=== PATIENT | female | born 1945 | race Caucasian/White ===

== ENCOUNTER 2021-02-14 11:28 | Outpatient (REF) | payer MEDICAID, OTHER, SELFPAY ==
--- NOTE | ~2021-02-14 | MM_ITS ---
EXAMINATION: MM SCREENING DIGITAL BREAST TOMOSYNTHESIS, BILATERAL CLINICAL INFORMATION: Screening. Asymptomatic. Age 75. No known family history breast cancer. Prior mammography performed out of the country in the [place] and no longer available. The lifetime risk of breast cancer based on the Tyrer-Cuzick Model is 2%. COMPARISON: None (current study represents new baseline exam). TECHNIQUE: Digital breast tomosynthesis is performed in both the craniocaudal and mediolateral oblique views along with computer-aided detection (CAD). Synthesized 2D images are generated from the tomosynthesis. FINDINGS: There are scattered areas of fibroglandular density (ACR BI-RADS breast composition Category b). There are no significant masses, abnormal calcifications, or other abnormalities. The axilla and skin contours are unremarkable. MM/MM tomosynthesis screening BI IMPRESSION: No mammographic evidence of malignancy. ASSESSMENT: BI-RADS 1: Negative RECOMMENDATION: Routine annual mammography screening. This patient's information was entered into a reminder system with a target due date for their next mammogram.
== END 2021-02-14 11:29 | disposition home or self-care (01) ==
LOC: HO.MAMMO 11:28
PROVIDERS: Visit Provider General Practice
DX: Z12.31 Encounter for screening mammogram for malignant neoplasm of breast (principal)
CPT/HCPCS: 77063; 77067

== ENCOUNTER 2025-07-08 12:39 | Emergency (ER) | payer MEDICAID, OTHER, SELFPAY ==
--- NOTE | ~2025-07-08 | XR_ITS ---
EXAMINATION: XR CHEST CLINICAL INFORMATION: chest pain COMPARISON: None available. TECHNIQUE: 2 views of the chest were obtained. FINDINGS: Cardiac silhouette is enlarged. The aorta is tortuous. The lungs are clear. There is no pleural effusion. XR/XR chest 2V IMPRESSION: Cardiomegaly and tortuous aorta. Electronically signed by: Marv Zimmerman MD 07/08/2025 01:34 PM EDT
--- OUTSIDE RECORDS SUMMARY | 2025-07-08 11:00 | XMS_ITS | Encounter Summary ---
Author Organization [facility] Address [address] [place] [address] Care Team Providers Care Plant Assigner Name Role Phone Delgado Felix PA-C Primary Care Provider [phone] Reason for Visit * Reason Comments Hypertension Encounter Details Date Type Department Care Team (Late st Contact Info) Description 07/08/2025 11:00 AM EDT Office Visit [facility] [address] [place] [phone] Hayden Lambert, PharmD [address] [place], [place] [id number] Social History Tobacco Use Types Packs/Day Years Used Date Smoking Tobacco: Never Smokeless Tobacco: Never Alcohol Use Standard Drinks/Week Comments Yes 0 (1 standard drink = 0.6 oz pur e alcohol) occ Social Connections Answer Date Recorded How often do you feel lonely or isolated from th ose around you? 1 10/11/2024 Financial Resource Strain Answer Date R ecorded Hard to pay for: Food 1 10/11/2024 Stress Answer Date Recorded Do you feel these kinds of stress these days? 1 10/11/2024 Physical Activity Answer Date Recorded Physical Activity 0 08/24/2019 Food Insecurity Answer Date Recorded Hard to pay for: Food 1 10/11/2024 Transportation Needs Answer Date Record ed Hard to pay for: Transportation 1 10/11/2024 Housing Stability Answer Date Recorded Hard to pay for: Rent/Mortgage payment 1 10/11/2024 Safety and Environment Answer Date Estevan rded Safety 0 05/14/2023 Utilities Answer Date Recorded Hard to pay for: Utilities 1 10/11 Employment Answer Date Recorded Stress 0 05/14/2023 Comments No Sex and Gender Information Value Date Recorded Sex Assigned at Female 08/24/2019 10:52 AM PST Legal Sex Female 7:15 AM PDT Gender Identity Female 08/24/2019 10:52 AM PST Sexual Orientation Straight 08/24/2019 3: 03 PM PST documented as of this encounter Last Filed Vital Signs Vital Sign Reading Time Taken Comments Blood Pressure 212/98 07/08/2025 11:06 AM EDT Pulse 59 07/08/2025 11:06 AM EDT Temperature - - Respiratory Rate 20 07/08/2025 11:06 AM EDT Oxygen Saturation 99% 07/08/2025 11:06 AM EDT Inhaled Oxygen Concentration - - Weight 65.4 kg (144 lb 3.2 oz) 07/08/2025 11:06 AM EDT Height - - Body Mass Index 27.25 06/29/2025 2:28 PM EDT documented in this encounter Progress Notes * Hayden Martinez PharmD - 07/08/2025 11:03 AM EDT Alis Bush is a 79 year old, Occitan-speaking female who presents today for a [facility] with Hayden Molina PharmD. Referred by Delgado Felix PA-C. No motor vehicle parts interpreter needed for today's visit as provider speaks patient's familiar language. HPI: Patient reports: Endorses adherence to current regimen. Denies missed doses. Denies headaches, chest pain, SOB, blurry vision. BP noted to be extremely elevated at 212/98 mmHg. Denies recent SMBP at home. New concerns: No concerns HTN Specialists: Alcohol use, Dyslipidemia, Family History, and Pre-diabetes Hypertension ROS: taking medications as instructed, no medication side effects noted, no TIAs, no chest pain on exertion, no dyspnea on exertion, no swelling of ankles. Relevant co-morbidities: Alcohol use, Dyslipidemia, Family History, and Pre-diabetes Pharmacotherapy (medications reconciled during visit): Current anti-hypertensive pharmacological regimen: amlodipine-olmesartan 10-40 mg daily and propranolol 60 mg BID Additional OTC medications or supplements: Vitamin C, B-Complex, Calcium supplement Patient reported medication NON-adherence: no misses Patient reports the following medication side effects: none Did you take your medication today? yes Home BP monitoring: Patient denies recent SMBP at home Lifestyle: Adherence to low salt/DASH diet: adherent most of the time Adds salt to your food? no Eats a lot of canned/pre-packaged food products? no Exercise: minimal exercise: walking Caffeine: denies coffee, sometimes drinks tea, denies soda, denies energy drinks Water Intake: 10 glasses of water daily Tobacco Use: Never Smoker Alcohol Use: Socially, only during holidays/gatherings OBJECTIVE BP (!) 212/98 at 07/08/2025 11:06 AM BP (!) 148/60 at 06/29/2025 2:28 PM BP (!) 160/74 at 10/11/2024 10:14 AM Wt Readings from Last 3 Encounters: 07/08/25 144 lb 3.2 oz (65.4 kg) 06/29/25 146 lb (66.2 kg) 10/11/24 145 lb (65.8 kg) Lab Results Component Value Date NA 139 10/11/2024 K 4.7 10/11/2024 BUN 13 10/11/2024 BUNCREAT SEE NOTE: 10/11/2024 CREATININE 0.80 10/11/2024 Lab Results Component Value Date TRIGLYC 103 10/11/2024 CHOL 277 (H) 10/11/2024 HDL 78 10/11/2024 LDL 177 (H) 10/11/2024 CHOLHDL 3.6 10/11/2024 NONHDL 199 (H) 10/11/2024 The ASCVD Risk score (Ronen NOBLE, et al., 2019) failed to calculate for the following reasons: The valid systolic blood pressure range is 90 to 200 mmHg Estimated Creatinine Clearance: 53.4 mL/min (by C-G formula based on SCr of 0.8 mg/dL). Allergies reviewed: No Known Allergies ASSESSMENT BP target: Per ACC/AHA guidelines, for older adults (=65 years of age) with hypertension and a highburden of comorbidity and limited life expectancy, clinical judgment, patient preference, and a team-based approach to assess risk/benefit is reasonable for decisions regarding intensity of BP lowering and choice of antihypertensive drugs. Hypertension - poorly controlled Labs reviewed, up to date and abnormal values (elevated lipid panel) Per ACC/AHA 2017 Hypertension guidelines: Weight loss is recommended to reduce BP in adults with elevated BP or hypertension who are overweight or obese. Expect about 1 mm Hg for every 1-kg reduction in body weight., A heart-healthy diet, such as the DASH (Dietary Approaches to Stop Hypertension) diet, that facilitates achieving a desirable weight is recommended for adults with elevated BP or hypertension. Consume a diet rich in fruits, vegetables, whole grains, and low-fat dairy products, with reduced content of saturated and total fat., Sodium reduction is recommended for adults with elevated BP or hypertension. Optimal goal is <1500 mg/d, but aim for at least a 1000-mg/d reduction in most adults., and Increased physical activity with a structured exercise program is recommended for adults with elevated BP or hypertension. 90-150 min/wk. PLAN I10 Essential hypertension (primary encounter diagnosis) Plan : ECG ROUTINE ECG W/LEAST 12 LDS W/I&R Hypertension - poorly controlled. EKG performed. T wave inversions at 2,3 an aVF per Tonny Haskins PA-C. Uncontrolled BP with concerning EKG, advised to go to ER. Patient daughter agreeable to take patient to [facility]. Expect called in by nurse. EDUCATION PROVIDED: Proper conditions for taking blood pressure include sitting in a chair with feet flat on the groundfor a few minutes prior to blood pressure measurement, arm resting on flat surface at heart level, elimination of background noises, no talking, empty bladder, proper environmental temperature. Factors to also consider that may affect BP include, smoking, caffeine, alcohol use, pain, and exercise. Seeking emergency treatment if persistent chest pain, blurry vision, and/or palpitations Medication(s): (indication, dosage, administration, storage, side effects, missing dose) Correspondence Coordinator Complications of Uncontrolled Hypertension Lifestyle Modifications (weight reduction, diet, exercise). Meal Planning (low salt diet, measuringtools, serving sizes, nutrition labels). REFERENCES: Sarah PK, Wilma RM, Shant WS, Rodney RODRIGUEZ Jr, Eliazar KJ, Ila Benitez C, Silvana SM, Luly S, Vanessa KA, Jaswinder DW, Pete EJ, Kelby P, Meera B, Pancho SWARTZ Jr, Sukumar CC, Richie RS, Kaye SJ, Kenan RJ, Sergio GEORGE Sr, Vincent RamiresD, Fredy PANIAGUA Jr. 2017 ACC/AHA/AAPA/ABC/ACPM/AG S/APhA/CHAPO/ASPC/NMA/PCNA Guideline for the Prevention, Detection, Evaluation, and Management of High Blood Pressure in Adults: Executive Summary: A Report of the [place] College of Cardiology/[place] Heart Association Task Force on Clinical Practice Guidelines. Hypertension. 2018 Mar;71(6):8346-3666. doi: 10.1161/HYP.3212953083696726. Epub 2016Aug 18. Erratum in: Hypertension. 2018 Mar;71(6):s196-c698. Erratum in: Hypertension. 2017;72(3):e33. PMID: [id number]. Hayden Molina PharmD, [facility] documented in this encounter Plan of Treatment Not on file documented as of this encounter Visit Diagnoses Diagnosis Essential hypertension- Primary documented in this encounter Additional Health Concerns Assessment Noted Time PHQ-9 Depression Total Score: 0 11/06/19 24 1:48 PM PST A Depression follow-up plan has been documented for the patient 06/29/2025 4:17 PM PDT documented as of this encounter Care Teams Plant Assigner Relationship Specialty Start Date End Date Delgado Felix PA-C [address] [place] [address] PCP - General 03/15/22 documented as of this encounter
--- NOTE | 2025-07-08 12:41 | ECG_ITS ---
Test Reason : chest pain Blood Pressure : */* mmHG Vent. Rate : 59 BPM Atrial Rate : 59 BPM P-R Int : 146 ms QRS Dur : 146 ms QT Int : 440 ms P-R-T Axes : -11 -52 -25 degrees QTcB Int : 435 ms Sinus bradycardia with Premature atrial complexes Right bundle branch block Left anterior fascicular block Bifascicular block Minimal voltage criteria for LVH, may be normal variant ( R in aVL ) Septal infarct , age undetermined Abnormal ECG No previous ECGs available Referred By: Generic ED Physician Electronically Signed By: CHELY BARNES
[2025-07-08 13:10] VITALS: BP 216/93; PULSE 54; RESP 16; TEMP 36.1; O2SAT 97; BMI 27.4
--- NOTE | 2025-07-08 13:12 | ED_ITS ---
HPI - General Adult General Chief complaint: Chest Pain Stated complaint: Chest Pain Time Seen by Provider: 07/08/25 15:32 History of Present Illness ED Provider: Hossein Glass MD HPI narrative: 79-year-old female with a history of hypertension hard of hearing sent from cardiology office after a routine visit she was complaining of intermittent mild right-sided chest discomfort and has had a dry cough without fever for several days. No sick contacts no hemoptysis or leg swelling no prior DVT PE no known coronary disease. She denies any pain radiating to the back neck or jaw or extremities. Currently comfortable and no pain at all. Reported that potentially there was a T-wave inversion or other potentially new abnormality of the EKG not described in detail to me I do not have access to previous EKGs. Related Data Allergies Allergy/AdvReac Type Severity Reaction Status Date / Time No Known Allergies Allergy Verified 07/08/25 13:13 [facility] Social History Social History Advance Directives: No Advance Directives Information Provided: No Physical Exam ED Exam Exam: EXAM: Gen: Alert, awake, well appearing, well hydrated. Head: Atraumatic Eyes: Anicteric, Normal conjunctiva. ENT: Moist mucosa, no pallor. ? Neck: Supple. Skin: ?No observable rash or bruising on exposed or examined skin Respiratory: Breathing comfortably, No distress.Clear to auscultation bilaterally, symmetric chest expansion, No wheeze, rales, ronchi. Cardiovascular: Regular rate and rhythm. No murmurs or rub. Well perfused periphery, warm extremities. No edema. ? Abdominal: No focal tenderness. Soft, no objective distension. No palpable masses or obvious organomegaly. ?No guarding, no rebound tenderness or other peritoneal findings. : No flank tenderness. Neuro: Alert. Gross movement of all extremities intact. ? Psych: Calm. Cooperative. MSK: No grossly visible deformity. Vital signs: See flowsheet Vital Signs: Vital Signs - 24 hr 07/08/25 13:10 Temperature 96.9 F Pulse Rate 54 Respiratory Rate 16 Blood Pressure 216/93 H Pulse Oximetry 97 Oxygen Delivery Method Room Air BMI result Body Mass Index 27.4 Course Course Course Narrative: This is a rapid medical exam performed by Elan Shea NP: Additional HPI, ROS, PE not included below will be deferred to primary provider. Patient is a 79-year-old [place] Zealander speaking female presenting with complaint of chest pain and headache since this am. [facility]. Saw operations manager assistant this morning, was referred here for new T wave inversion. Plan: EKG, labs, viral serology, CXR Medical Decision Making Medical Decision Making MDM Narrative: Medical Decision Making: Chest pain right-sided intermittent associated with cough. The patient is got a tortuous aorta and cardiomegaly likely chronic hypertension. Right bundle- branch block, left anterior fascicular block unknown age. T-wave inversion lead 3 and AVF. Given the duration and intermittent and atypical character of the pain a negative troponin today excludes NM or myocardial injury. The patient is comfortable with no hypoxia. Without any treatment systolic blood pressure came down from 218 to 160s. Patient does not have exertional pain she is under the care of a operations manager assistant in can likely follow up for stress test or other provocative or invasive testing if needed. Preliminary Favored Differential Diagnosis: ACS, pneumonia, bronchitis, musculoskeletal pain among additional considered etiologies Testing Interpreted Independently: ?ECG from patient's cardiology office today interpreted by myself: Sinus rhythm incomplete right bundle-branch block present. T-wave inversions though concordant with QRS predominant voltage in the inferior leads. ECG today in our ED: Sinus rhythm rate 59 QTC 435 no acute ischemic changes similar consistent in morphology to the office EKG from earlier today. Radiology or Lab testing Results Reviewed: ?See below for details Consults: ?See below for details Independent Historians/External Chart Reviews: ?See below for details Social Determinants of Health Impacting MDM/Planning: ?See below for details Lab Data 07/08/25 13:43 07/08/25 13:43 Labs: Lab Results 07/08/25 Range/Units 13:43 WBC 7.4 (4.8-10.8) X10*3/uL RBC 4.59 (4.20-5.50) X10*6/uL Hgb 13.9 (12.0-16.0) g/dl Hct 41.9 (37.0-47.0) % MCV 91.3 (80.0-98.0) fL MCH 30.3 (27.0-33.0) pg MCHC 33.2 (31.0-35.0) g/dl RDW 12.7 (11.0-16.0) % Plt Count 266 (160-400) X10*3/uL MPV 10.0 (9.4-12.3) fL Immature Gran % (Auto) 0.3 (0.0-0.4) % Neut % (Auto) 70.9 (45-73) % Lymph % (Auto) 20.5 (20-40) % [place] % (Auto) 5.8 (2-11) % Eos % (Auto) 1.6 (0-4) % Baso % (Auto) 0.9 (0-2) % Lymph # (Auto) 1.5 (1.2-4.9) X10*3/uL [place] # (Auto) 0.4 (0.1-1.2) X10*3/uL Eos # (Auto) 0.1 (0.0-0.4) X10*3/uL Baso # (Auto) 0.1 (0.0-0.2) X10*3/uL Abs Immat Gran (auto) 0.02 (0.00-0.03) X10*3/uL Absolute Neuts (auto) 5.3 (2.0-8.3) x10*3/uL Absolute Nucleated RBC 0.000 (0.0-0.012) X10*3/uL Nucleated RBC % (auto) 0.0 (0.0-0.2) /100WBC PT 12.1 (10.9-12.4) SEC INR 1.1 (0.9-1.1) Sodium 140 (135-145) mmol/L Potassium 4.4 (3.3-5.1) mmol/L Chloride 104 (96-108) mmol/L Carbon Dioxide 28 (22-29) mmol/L Anion Gap 12 (12-20) BUN 11 (9-16) mg/dL Creatinine 0.83 (0.5-1.4) mg/dL Estim Creat Clear Calc 49.2 Estimated GFR > 60 Random Glucose 147 H (60-115) mg/dL Calcium 10.6 H (8.4-10.2) mg/dL Magnesium 2.1 (1.6-2.6) mg/dL Total Bilirubin 1.0 (0.0-1.0) mg/dL AST 33 H (5-31) U/L ALT 23 (0-31) U/L Alkaline Phosphatase 87 (39-117) U/L Troponin I High Sens < 2.7 (<3.5-17.0) ng/L NT-Pro-B Natriuret Pep 217.5 (<300) pg/mL Total Protein 8.8 H (6.5-8.0) g/dL Albumin 4.7 (3.5-5.0) g/dL COVID-19 (KP) Negative (Negative) COVID-19 Clin Com See Note Influenza Type A ([place]) Negative (Negative) Influenza Type B ([place]) Negative (Negative) Influenza A & B Note See Note Discharge Plan Discharge Clinical Impression: Atypical chest pain Patient Disposition: Home, Self-Care Instructions: Chest Pain (ED) Additional Instructions: Call your operations manager assistant Friday morning to discuss follow up Additionally: Chest Pain Discharge Instructions Discharge Instructions for Chest Pain and Hypertension - Diagnosis and Risk: You were evaluated for chest pain. Your tests, including heart enzyme (troponin) levels and ECG, did not show signs of a heart attack or major heart problem. However, your blood pressure remains high and you have risk factors that require close follow-up.[1] https://www.ncbi.nlm.nih.gov/pmc/articles/OSH62520995/ [2] https://doi.org/10.1016/j.jacc.202.07.053 [3] https://doi.org/10.1016/j.jacc.2013.09.017 - Warning Signs: Return to the emergency department immediately if you experience: - Chest pain that is severe, prolonged, or different from your usual symptoms - Shortness of breath, fainting, sudden weakness, or confusion - Palpitations or rapid heartbeat - New or worsening symptoms such as leg swelling or sudden fatigue[2] https://doi.org/10.1016/j.jacc.202.07.053 - Medications: Take all prescribed medications as directed, including those for blood pressure. If you were given nitroglycerin, use it as instructed for chest discomfort. Do not take extra doses without medical advice.[3] https://doi.org/10.1016/j.jacc.2013.09.017 - Activity: Resume normal activities as tolerated, but avoid strenuous exercise until cleared by your operations manager assistant. If you experience chest pain during activity, stop and rest. If pain persists, seek medical attention.[3] https://doi.org/10.1016/j.jacc.2013.09.017 - Follow-Up: It is important to follow up with your operations manager assistant within 7 days, or as scheduled, to review your symptoms, blood pressure control, and need for further testing. Bring a list of your medications and any new symptoms to your appointment.[1] https://www.ncbi.nlm.nih.gov/pmc/articles/GZJ90680312/ - Lifestyle: - Monitor your blood pressure at home if possible. - Limit salt intake and follow a heart-healthy diet. References * 2021 ACC Expert Consensus Decision Pathway on the Evaluation and Disposition of Acute Chest Pain In?the?Emergency Department: A Report of the [place] [employer] Solution Set Oversight Committee https://www.ncbi.nlm.nih.gov/pmc/articles/OUP63609600/ . Sarabjit MC, de Ignacia JA, Jared COON, et al. Journal of the [place] [employer]. 2021;80(20):4435-7148. doi:10.1016/j.jacc.2021.08.750. * 2020 AHA/ACC/ASE/CHEST/SAEM/SCCT/SCMR Guideline for the Evaluation and Diagnosis of Chest Pain: A Report of the [place] College [employer]iology/[place] Heart Association Joint Committee on Clinical Practice Guidelines https://doi.org/10.1016/j.jacc.2020.07.053 . Manpreet M, Jason PD, Sherrell D, et al. Journal of the [place] [employer]. 2020;78(22):f170-u926. doi:10.1016/j.jacc.2020.07.053. * 2014 AHA/ACC Guideline for the Management of Patients With Hga-Si-Htamsoenq Acute Coronary Syndromes: A Report of the [place] [employer]/[place] Heart Association Task Force on Practice Guidelines https://doi.org/10.1016/j.jacc.2014.09.017 . Pedro EA, Carmen NK, Humera RG, et al. Journal of the [place] [employer]. 2014;64(24):e139- e228. doi:10.1016/j.jacc.2014..017. Print Language: [place] Zealander
[2025-07-08 13:49] LABS: MANUAL DIFF FLAG NO
[2025-07-08 13:56] LABS: INTERNATIONAL NORM RATIO 1.1 (0.9-1.1); Prothrombin Time 12.1 SEC (10.9-12.4)
[2025-07-08 13:58] LABS: Hematocrit 41.9 % (37.0-47.0); Hemoglobin 13.9 g/dl (12.0-16.0); Imm Gran Abs Auto 0.02 X10*3/uL (0.00-0.03); Imm Gran Pct Auto 0.3 % (0.0-0.4); Lymphocytes Absolute Auto 1.5 X10*3/uL (1.2-4.9); Mean Corpuscular HGB Conc 33.2 g/dl (31.0-35.0); Mean Corpuscular Hemoglobin 30.3 pg (27.0-33.0); Mean Corpuscular Volume 91.3 fL (80.0-98.0); NRBC Abs Auto 0.000 X10*3/uL (0.0-0.012); NRBC Pct Auto 0.0 /100WBC (0.0-0.2); Platelet Count 266 X10*3/uL (160-400); Red Blood Count 4.59 X10*6/uL (4.20-5.50); White Blood Count 7.4 X10*3/uL (4.8-10.8)
--- OUTSIDE RECORDS SUMMARY | 2025-07-08 13:58 | XMS_ITS | Clinical Summary ---
Author Organization [facility] Address [address] [place] [address] Care Team Providers Care Production Packager Name Role Phone Delgado Felix PA-C Primary Care Provider [phone] Source Comments PLEASE NOTE, if this patient is a minor, it may be UNLAWFUL to discuss sensitive information that is contained in these records (such as FAMILY PLANNING, MENTAL HEALTH or SUBSTANCE ABUSE) with the minor patient's parent or other person without the patient's specific authorization.[facility] Allergies No known active allergies Medications timolol (TIMOPTIC) 0.5 % ophthalmic solutionIndication s:Glaucoma of left eye, unspecified glaucoma type Place 1 Drop into both eyes once daily 30 mL 2 02/12/20 23 Active blood-glucose meter monitoring kitIndications:Typ e 2 diabetes mellitus without complication, without long-term current use of insulin as needed for blood glucose monitoring 1 Each 11/06/19 24 Active latanoprost (XALATAN) 0.005 % ophthalmic solutionIndication s:Glaucoma of left eye, unspecified glaucoma type,Senile cataract of left eye, unspecified age-related cataract type Coloque 1 gota en ambos ojos todas las noches antes de acostarse 10 mL 12/16/19 24 Active acetaminophen (TYLENOL) 325 mg tabletIndications: Myalgias Take 2 Tablets by mouth every 6 (six) hours as needed for pain. 60 Tablet 1 06/29/20 25 Active amlodipine-olmesar casiano (BASILIO) 10-40 mg tab per tabIndications:Ess ential hypertension Take 1 Tablet by mouth once daily. 90 Tablet 1 06/29/20 25 Active atorvastatin (LIPITOR) 20 mg tabletIndications: Mixed hyperlipidemia Take 1 Tablet by mouth once daily. 90 Tablet 1 06/29/20 25 Active ferrous sulfate (FEROSUL) 325 mg (65 mg iron) tabletIndications: Other iron deficiency anemia Take 1 Tablet by mouth once daily with breakfast. 90 Tablet 1 06/29/20 25 Active metFORMIN (GLUCOPHAGE) 500 mg tabletIndications: Type 2 diabetes mellitus without complication, without long-term current use of insulin TAKE TWO TABLETS BY MOUTH 2 TIMES A DAY. 360 Tablet 06/29/20 25 Active propranoloL (INDERAL) 60 mg tabletIndications: Intention tremor,Essential hypertension Take 1 Tablet by mouth 2 (two) times daily. 90 Tablet 1 06/29/20 25 Active propranoloL (INDERAL) 60 mg tabletIndications: Essential hypertension,Inten tion tremor TAKE ONE TABLET BY MOUTH TWICE DAILY 90 Tablet 1 03/21/20 25 025 Discontin ued(Reord er (E-Cancel Not Sent)) metFORMIN (GLUCOPHAGE) 500 mg tabletIndications: Type 2 diabetes mellitus without complication, without long-term current use of insulin TAKE TWO TABLETS BY MOUTH 2 TIMES A DAY. 360 Tablet 05/30/20 25 025 Discontin ued(Reord er (E-Cancel Not Sent)) ferrous sulfate (FEROSUL) 325 mg (65 mg iron) tabletIndications: Other iron deficiency anemia Take 1 Tablet by mouth once daily with breakfast. 90 Tablet 1 05/30/20 25 025 Discontin ued(Reord er (E-Cancel Not Sent)) atorvastatin (LIPITOR) 20 mg tabletIndications: Mixed hyperlipidemia Take 1 Tablet by mouth once daily. 90 Tablet 1 05/30/20 25 025 Discontin ued(Reord er (E-Cancel Not Sent)) amlodipine-olmesar casiano (BASILIO) 10-40 mg tab per tabIndications:Ess ential hypertension Take 1 Tablet by mouth once daily. 90 Tablet 1 05/30/20 25 025 Discontin ued(Reord er (E-Cancel Not Sent)) Active Problems Problem Noted Date Diagnosed Date Iron deficiency anemia 02/02/2020 Mixed hyperlipidemia 02/02/2020 Memory problem 09/14/2019 Essential hypertension 08/24/2019 Type 2 diabetes mellitus wit hout complication, without long-term current use of insulin 08/24/2019 Glaucoma of left eye 08/24/2019 Age-related cataract of left eye 08/24/2019 Encounters Date Type Department Care Team Description 07/08/2025 11:00 [place] [phone] Hayden Lambert, [place] 06/29/2025 2:20 [place] [phone] Delgado Felix PA-C from Last 3 Months Immunizations Immunization Administration Dates Next Due Flu, High Dose, 65y+, Fluzone High Dose 06/18/20 23,08/06/2022 Influenza (FLUZONE), high-do se, trivalent, PF 06/29/2025,08/24/2024 MODERNA COVID-19 VACCINE BIV ALENT, BLUE CAP, 6M+ 03/05/2023 PNEUMOCOCCAL CONJUGATE PCV 2 0 (Prevnar 20) 06/29/2025(Deferred: Out of Stock) PNEUMOCOCCAL POLYSACCHARIDE PPV23 (Pneumovax 23) 02/11/2023 TDAP 03/05/2023 ZOSTER VACCINE, RECOMBINANT (SHINGRIX) 3,08/06/2022 Social History Tobacco Use Types Packs/Day Years Used Date Smoking Tobacco: Never Smokeless Tobacco: Never Tobacco Cessation:Counseling Given: Not Answered Alcohol Use Standard Drinks/Week Comments Yes 0 [...] Orientation Straight 08/24/2019 3: 03 PM PST Last Filed Vital Signs Vital Sign Reading Time Taken Comments Blood Pressure 212/98 07/08/2025 11:06 AM EDT Pulse 59 07/08/2025 11:06 AM EDT Temperature 37 C (98.6 F) 06/29/2025 2:28 PM EDT Respiratory Rate 20 07/08/2025 11:06 AM EDT Oxygen Saturation 99% 07/08/2025 11:06 AM EDT Inhaled Oxygen Concentration - - Weight 65.4 kg (144 lb 3.2 oz) 07/08/2025 11:06 AM EDT Height 154.9 cm (5' 1 ) 06/29/2025 2:28 PM EDT Body Mass Index 27.25 06/29/2025 2:28 PM EDT Plan of Treatment Health Maintenance Due Date Last Done Comments Dental Examination 1947 CT Colonography 1992 Colonoscopy 1992 FIT/gFOBT 1992 Fecal DNA 1992 Flexible Sigmoidoscopy 1992 Bone Density Screening 2012 Imm-Pneumococcal 50+ (2 of 2 - PCV) 02/12/2024 02/11/2023 Retinopathy Screening 07/28/2024 07/28/2023, 023 Hemoglobin A1c 06/18/2025 12/16/2024, 08/0 03/2024, 11/06/2023, Additional history exists [id number] ( season) 2025 03/05/2023, 11/13/2021, 01/16/2021, Additional history exists Postponed from 06/06/2025 (Patient postponement) Lipid Screening 10/11/2025 10/11/2024, 06/06, 06/04/2022, Additional history exists Serum Creatinine 10/11/2025 10/11/2024, , 06/04/2022, Additional history exists Falls Prevention 11/11/2025 11/11/2024, 10/2023, 06/03/2022 Urine Albumin Creatinine Ratio Screening 12/16/2025 12/16/2024, 05/11/2024 Annual Wellness (Adult): Indicated (All Coverage) 06/29/2026 06/29/2025, 05/14/2023, 09/14/2019 Diabetes Foot Exam 06/29/2026 06/29/2025, 0 11/06/2023, 11/06/2023, Additional history exists Imm-RSV (adult) (1 - 1-dose 75+ series) 06/29/2026 Postponed from 2022 (Patient postponement) Tobacco Screening 06/29/2026 06/29/2025 Imm-DTaP/Tdap/Td (2 - Td or Tdap) 03/05/2033 03/05/2023 Imm-Zoster, Recombinant Completed 02/11/2023, 08/06 Hepatitis C Screening Completed 03/05/2023 Alcohol and Drug Screen Completed 11/11/19, 11/06/2023, 02/11/2023, Additional history exists Depression Annual Screen Completed 11/11/2024 Imm-Influenza Completed 06/29/2025, 08/06, 06/18/2023, Additional history exists Colorectal Cancer Screening Discontinued Procedures Procedure Name Priority Date/Time Associated Diagnosis Comments MICROALBUMIN/CREATINI NE RATIO, URINE, RANDOM Routine 12/16/2024 12:09 PM EDT Type 2 diabetes mellitus without complication, without long-term current use of insulin ([facility]) HEMOGLOBIN GLYCOSYLATED A1C Routine 12/16/2024 9:29 AM EDT Type 2 diabetes mellitus without complication, without long-term current use of insulin ([facility]) COMPREHENSIVE METABOLIC PANEL Routine 10/11/2024 10:52 AM EST Essential hypertension LIPID PANEL Routine 10/11/2024 10:52 AM EST Essential hypertension EYE EXAM 07/28/2023 3:00 AM EDT HEPATITIS C AB W/RFLX HCV RNA, QT, RT PCR Routine 03/05/2023 8:57 AM EDT Screening for viral disease from Last 3 Months or Most Recently Relevant to Health Maintenance Results * (ABNORMAL) MICROALBUMIN/CREATININE RATIO, URINE, RANDOM (12/16/2024 12:09 PM EDT) CREATININE, RANDOM URINE 77 20 - 275 mg/dL [employer] MICROALBUMIN 26.2 mg/dL [employer] Comment: Reference Range Not established MICROALBUMIN/CREA TININE RATIO, RANDOM URINE 340(H) <30 mg/g creat [employer] Comment: The ADA defines abnormalities in albumin excretion as follows: Albuminuria Category Result (mg/g creatinine) Normal to Mildly increased <30 Moderately increased 30-299 Severely increased > OR = 300 The ADA recommends that at least two of three specimens collected within a 3-6 month period be abnormal before considering a patient to be within a diagnostic category. Urine Urine specimen / Unknown 12/16/2024 12:09 PM EDT 12/16/2024 12:10 PM EDT Narrative [facility] - 12/17/2024 10:31 PM EDT SPLIT 12/16/2024 FROM [id number] us Delgado Felix PA-C LAB URINE AMBULATORY Final R esult [facility] [address] [place] [address], [employer] [address] [place] [phone] * (ABNORMAL) HEMOGLOBIN GLYCOSYLATED A1C (12/16/2024 9:29 AM EDT) HEMOGLOBIN A1C 6.8(H) <5.7 % of total Hgb [employer] Comment: For someone without known diabetes, a hemoglobin A1c value of 6.5% or greater indicates that they may have diabetes and this should be confirmed with a follow-up test. For someone with known diabetes, a value <7% indicates that their diabetes is well controlled and a value greater than or equal to 7% indicates suboptimal control. A1c targets should be individualized based on duration of diabetes, age, comorbid conditions, and other considerations. Currently, no consensus exists regarding use of hemoglobin A1c for diagnosis of diabetes for children. Blood Blood / Unknown 12/16/2024 9 :29 AM EDT 12/16/2024 9:30 AM EDT Narrative [facility] - 12/17/2024 7:59 AM EDT PATIENT UNABLE TO VOID; ADVISED TO RETURN FOR COLLECTION. us Delgado Felix PA-C LAB - BLOOD DRAW Final Resul t [facility] [address] [address], [employer] [address] [place] [address] * (ABNORMAL) LIPID PANEL (10/11/2024 10:52 AM EST) [facility] CHOLESTEROL, TOTAL 277(H) <200 mg/dL [employer] HDL CHOLESTEROL 78 > OR = 50 mg/dL [employer] TRIGLYCERIDES 103 <150 mg/dL [employer] LDL-CHOLESTEROL 177(H) 99 mg/dL (calc) [employer] Comment: Reference range: <100 Desirable range <100 mg/dL for primary prevention; <70 mg/dL for patients with CHD or diabetic patients with > or = 2 CHD risk factors. LDL-C is now calculated using the Boom-Irwin calculation, which is a validated novel method providing better accuracy than the Friedewald equation in the estimation of LDL-C. Boom SS et al. DENI. 2013;310(19): 6063-2108 (http://education.Return Path.ThoughtBox/faq/LEF083) CHOL/HDLC RATIO 3.6 <5.0 (calc) [employer] NON-HDL CHOLESTEROL 199(H) <130 mg/dL (calc) [employer] Comment: For patients with diabetes plus 1 major ASCVD risk factor, treating to a non-HDL-C goal of <100 mg/dL (LDL-C of <70 mg/dL) is considered a therapeutic option. Blood Blood / Unknown 10/11/2024 1 0:52 AM EST 10/11/2024 10:52 AM EST Narrative [facility] - 10/12/2024 9:07 AM EST FASTING:NO Hayden Martinez PharmD LAB - BLOOD D RAW Final Result [facility] [address] [address], [facility] [address] [place] [address] * COMPREHENSIVE METABOLIC PANEL (10/11/2024 10:52 AM EST) GLUCOSE 111 65 - 139 mg/dL [facility] Comment: Non-fasting reference interval UREA NITROGEN (BUN) 13 7 - 25 mg/dL [facility] CREATININE (blood) 0.80 0.60 - 1.00 mg/dL [facility] EGFR 76 > OR = 60 mL/min/1. 73m2 [facility] BUN/CREATININE RATIO SEE NOTE: [facility] Comment: Not Reported: BUN and Creatinine are within reference range. SODIUM 139 135 - 146 mmol/L [facility] POTASSIUM 4.7 3.5 - 5.3 mmol/L [facility] CHLORIDE 104 98 - 110 mmol/L [facility] CARBON DIOXIDE 28 20 - 32 mmol/L [facility] CALCIUM 9.8 8.6 - 10.4 mg/dL [facility] PROTEIN, TOTAL 7.4 6.1 - 8.1 g/dL [facility] ALBUMIN 4.2 3.6 - 5.1 g/dL [facility] GLOBULIN 3.2 1.9 - 3.7 g/dL (calc) [facility] ALBUMIN/GLOBULI N RATIO 1.3 1.0 - 2.5 (calc) [facility] BILIRUBIN, TOTAL 0.6 0.2 - 1.2 mg/dL [facility] ALKALINE PHOSPHATASE 80 37 - 153 U/L [facility] AST 19 10 - 35 U/L [facility] ALT 20 6 - 29 U/L [facility] Blood Blood / Unknown 10/11/2024 1 0:52 AM EST 10/11/2024 10:52 AM EST Narrative [facility] - 10/12/2024 9:07 AM EST FASTING:NO Hayden Martinez PharmD LAB - BLOOD D RAW Final Result [facility] [address] [address], [facility] [address] [phone] * EYE EXAM (07/28/2023 3:00 AM EDT) 07/28/2023 3:00 AM EDT Delgado Felix PA-C OTHER Edited Resul t - Final * Hep C Ab w/Rflx (03/05/2023 8:57 AM EDT) HEPATITIS C ANTIBODY NON-REACT ROBIN NON-REACT ROBIN [facility] SIGNAL TO CUT-OFF 0.17 <1.00 [facility] Comment: HCV antibody was non-reactive. There is no laboratory evidence of HCV infection. In most cases, no further action is required. However, if recent HCV exposure is suspected, a test for HCV RNA (test code 44290) is suggested. For additional information please refer to http://education.[facility]/faq/QFA39a2 (This link is being provided for informational/ educational purposes only.) Blood Blood / Unknown 03/05/2023 8 :57 AM EDT 03/05/2023 8:58 AM EDT Narrative [facility] - 03/05/2023 10:02 PM EDT FASTING:YES Delgado Felix PA-C LAB - BLOOD DRAW Edited Resu lt - Final [facility] [address] [address], [facility] [address] [phone] from Last 3 Months or Most Recently Relevant to Health Maintenance [place] [facility] SAFETY NET Care Teams Production Packager Relationship Specialty Start Date End Date Delgado Felix PA-C [address] [place] [address] PCP - General 03/15/22
--- OUTSIDE RECORDS SUMMARY | 2025-07-08 13:58 | XMS_ITS | Clinical Summary ---
Author Organization [facility] Address [address] [facility] [address] [place] [address] Care Team Providers Care Meteorology Professor Name Role Phone Unavailable Primary Care Provider Unavailabl e Allergies No known active allergies Medications amLODIPine (Norvasc) 10 MG tablet Take 1 tablet by mouth at bed time. 06/04/2021 Active atorvastatin (Lipitor) 20 MG tablet Take 20 mg by mouth Once per day. 01/13/2025 Active metFORMIN (Glucophage) 500 MG tablet TAKE TWO TABLETS BY MOUTH 2 TIMES A DAY 09/15/2024 Active losartan-hydroC HLOROthiazide (Hyzaar) 50-12.5 MG tablet Take 1 tablet by mouth at bed time. 01/18/2022 Active Encounters Date Type Department Care Team Description 04/21/2025 2:00 PM EDT Office Visit [facility] [address] [place] [address] Malaika Bhandari DDS 04/07/2025 2:00 PM EDT Office Visit [facility] [address] [place] [address] Malaika Bhandari DDS Retained tooth root (Primary Dx) from Last 3 Months Social History Tobacco Use Types Packs/Day Years Used Date Smoking Tobacco: Never Passive Smoke Exposure: Never Smokeless Tobacco: Never Tobacco Cessation:Counseling Given: Not Answered Comments Unknown Sex and Gender Information Value Date Recorded Sex Assigned at Female 08/05/2022 10:37 AM EDT Legal Sex Female 10:37 AM EDT Gender Identity Female 08/05/2022 10:37 AM EDT Sexual Orientation Straight 08/05/2022 10 :37 AM EDT Last Filed Vital Signs Vital Sign Reading Time Taken Comments Blood Pressure 162/89 04/21/2025 2:16 PM EDT Pulse 64 04/21/2025 2:16 PM EDT Temperature - - Respiratory Rate - - Oxygen Saturation - - Inhaled Oxygen Concentration - - Weight 65.8 kg (145 lb) 03/08/2025 12:19 PM EDT Height 157.5 cm (5' 2 ) 12/31/2021 12:03 AM EDT Body Mass Index 26.52 12/31/2021 12:03 AM EDT Plan of Treatment Upcoming Encounters Date Type Department Care Team (Late st Contact Info) Description 07/21/2025 12:00 PM EDT Office Visit [facility] [address] [place] [address] Malaika Bhandari DDS [address] [place] [id number] Health Maintenance Due Date Last Done Comments Dental Prophylaxis 1945 Depression Screening 1945 SDOH Screening 1945 Alcohol/Substance Use Screening 1959 Hepatitis C Screening 1965 RSV Patients and Patients Aged 60 years or older (1 - 1-dose 75+ series) 2022 Pneumococcal Vaccine: 50+ Years (2 of 2 - PCV) 02/12/2024 02/11/2023 COVID-19 Vaccine ( season) 2025 03/05/2023, 11/13/2021, 01/16/2021, Additional history exists Influenza Vaccine (#1) 2025 , 06/18/2023, 08/06/2022 Dental Oral Exam 09/08/2025 03/08/2025 Lipid Panel 12/11/2025 12/11/2020 Tobacco Screening 03/08/2026 03/08/2025 Dental X-Ray: Bitewings 03/09/2026 03/08/2025 Dental X-Ray: Full Mouth 03/09/2028 03/08/2025, 06/12/2024 DTaP/Tdap/Td Vaccines (2 - Td or Tdap) 03/05/2033 03/05/2023 Zoster Vaccines Completed 02/11/2023, 08/06/2022 HIB Vaccines Aged Out No longer eligi ble based on patient's age to complete this topic HPV Vaccines Aged Out No longer eligi ble based on patient's age to complete this topic Hepatitis A Vaccines Aged Out No long er eligible based on patient's age to complete this topic Hepatitis B Vaccines Aged Out No long er eligible based on patient's age to complete this topic IPV Vaccines Aged Out No longer eligi ble based on patient's age to complete this topic Meningococcal B Vaccine Aged Out No l onger eligible based on patient's age to complete this topic Meningococcal Vaccine Aged Out No chapincito guy eligible based on patient's age to complete this topic RSV under 20 months Aged Out No longe r eligible based on patient's age to complete this topic Rotavirus Vaccines Aged Out No longer eligible based on patient's age to complete this topic Procedures Procedure Name Priority Date/Time Associated Diagnosis Comments 15 EXTRACTION, ERUPTED TOOTH OR EXPOSED ROOT (ELEVATION/FORCEPS REMOVAL) Routine 04/21/2025 2:00 PM EDT 13 EXTRACTION, ERUPTED TOOTH OR EXPOSED ROOT (ELEVATION/FORCEPS REMOVAL) Routine 04/21/2025 2:00 PM EDT 11 EXTRACTION, ERUPTED TOOTH OR EXPOSED ROOT (ELEVATION/FORCEPS REMOVAL) Routine 04/21/2025 2:00 PM EDT 10 EXTRACTION, ERUPTED TOOTH OR EXPOSED ROOT (ELEVATION/FORCEPS REMOVAL) Routine 04/21/2025 2:00 PM EDT 23 EXTRACTION, ERUPTED TOOTH OR EXPOSED ROOT (ELEVATION/FORCEPS REMOVAL) Routine 04/21/2025 2:00 PM EDT 22 EXTRACTION, ERUPTED TOOTH OR EXPOSED ROOT (ELEVATION/FORCEPS REMOVAL) Routine 04/21/2025 2:00 PM EDT 21 EXTRACTION, ERUPTED TOOTH OR EXPOSED ROOT (ELEVATION/FORCEPS REMOVAL) Routine 04/21/2025 2:00 PM EDT 20 EXTRACTION, ERUPTED TOOTH OR EXPOSED ROOT (ELEVATION/FORCEPS REMOVAL) Routine 04/21/2025 2:00 PM EDT CASE PRESENTATION, DETAILED AND EXTENSIVE TREATMENT PLANNING Routine 04/07/2025 2:00 PM EDT 25 EXTRACTION, ERUPTED TOOTH OR EXPOSED ROOT (ELEVATION/FORCEPS REMOVAL) Routine 04/07/2025 2:00 PM EDT 29 EXTRACTION, ERUPTED TOOTH OR EXPOSED ROOT (ELEVATION/FORCEPS REMOVAL) Routine 04/07/2025 2:00 PM EDT Retained tooth root 28 EXTRACTION, ERUPTED TOOTH OR EXPOSED ROOT (ELEVATION/FORCEPS REMOVAL) Routine 04/07/2025 2:00 PM EDT 27 EXTRACTION, ERUPTED TOOTH OR EXPOSED ROOT (ELEVATION/FORCEPS REMOVAL) Routine 04/07/2025 2:00 PM EDT 26 EXTRACTION, ERUPTED TOOTH OR EXPOSED ROOT (ELEVATION/FORCEPS REMOVAL) Routine 04/07/2025 2:00 PM EDT 7 EXTRACTION, ERUPTED TOOTH OR EXPOSED ROOT (ELEVATION/FORCEPS REMOVAL) Routine 04/07/2025 2:00 PM EDT 6 EXTRACTION, ERUPTED TOOTH OR EXPOSED ROOT (ELEVATION/FORCEPS REMOVAL) Routine 04/07/2025 2:00 PM EDT 14 EXTRACTION Routine 04/07/2025 12:00 AM EDT 12 EXTRACTION Routine 04/07/2025 12:00 AM EDT INTRAORAL - COMPLETE SERIES OF RADIOGRAPHIC IMAGES Routine 03/08/2025 12:00 PM EDT COMPREHENSIVE ORAL EVALUATION - NEW OR ESTABLISHED PATIENT Routine 03/08/2025 12:00 PM EDT LIPID PANEL, STANDARD Routine 12/11/2020 3:25 PM EST from Last 3 Months or Most Recently Relevant to Health Maintenance Results * (ABNORMAL) LIPID PANEL, STANDARD (12/11/2020 3:25 PM EST) Chol/HDLC Ratio 3.3 <5.0 (calc) [facility] Cholesterol, Total 285(H) <200 mg/dL [facility] HDL Cholesterol 86 > OR = 50 mg/dL [facility] LDL Cholesterol 160(H) mg/dL (calc) [facility] Comment: Reference range: <100 Desirable range <100 mg/dL for primary prevention; <70 mg/dL for patients with CHD or diabetic patients with > or = 2 CHD risk factors. LDL-C is now calculated using the Vikas calculation, which is a validated novel method providing better accuracy than the Friedewald equation in the estimation of LDL-C. Boom COOK et al. DENI. 2013;310(19): 5052-2066 (http://education.[employer]TradersHighway/faq/XYQ068) Non-HDL Cholesterol 199(H) <130 mg/dL (calc) [facility] Comment: For patients with diabetes plus 1 major ASCVD risk factor, treating to a non-HDL-C goal of <100 mg/dL (LDL-C of <70 mg/dL) is considered a therapeutic option. Triglycerides 216(H) <150 mg/dL [facility] Comment: If a non-fasting specimen was collected, consider repeat triglyceride testing on a fasting specimen if clinically indicated. Rush et al. J. of Clin. Lipidol. 2015;9:129-169. 12/11/2020 3:25 PM EST us Farida Betancourt MD LAB BLOOD ORDERABLES Final Res ult [facility] [address] from Last 3 Months or Most Recently Relevant to Health Maintenance Insurance [facility] MEDICAID LIMITED ADULT DENTAL - [facility] FULL (MEDICAID)
[2025-07-08 14:09] LABS: Alanine Aminotransferase 23 U/L (0-31); Albumin Level 4.7 g/dL (3.5-5.0); Alkaline Phosphatase 87 U/L (39-117); Anion Gap 12 (12-20); Aspartate Amino Transferase 33 U/L (5-31); Blood Urea Nitrogen 11 mg/dL (9-16); Calcium 10.6 mg/dL (8.4-10.2); Carbon Dioxide 28 mmol/L (22-29); Chloride 104 mmol/L (96-108); Creatinine Clr Calc Pharmacy 49.2; Estimated Glomerular Filt Rate > 60; Magnesium 2.1 mg/dL (1.6-2.6); Potassium 4.4 mmol/L (3.3-5.1); Sodium 140 mmol/L (135-145); Total Protein 8.8 g/dL (6.5-8.0)
[2025-07-08 14:10] LABS: IDNOW Serial# 58CA691E
[2025-07-08 14:11] LABS: COVID-19 Test Negative (Negative); IDNOW Serial# 55D5AD1C; Influenza B2 Negative (Negative)
[2025-07-08 14:15] LABS: NT Pro B Type Natriuretic Pept 217.5 pg/mL (<300)
[2025-07-08 14:16] LABS: Troponin-I High Sensitivity < 2.7 ng/L (<3.5-17.0)
[2025-07-08 17:00] VITALS: BP 166/79; PULSE 56; RESP 16; TEMP 36.1; O2SAT 98
== END 2025-07-08 17:00 | disposition home or self-care (01) ==
PROVIDERS: Registered Nurse Emergency; Emergency Provider Emergency Medicine; PCP Physician Assistant
DX: R07.89 Other chest pain (principal); R06.02 Shortness of breath; R00.1 Bradycardia, unspecified; I45.10 Unspecified right bundle-branch block; Z11.52 Encounter for screening for COVID-19; Z79.899 Other long term (current) drug therapy
CPT/HCPCS: 71046; 80053; 83735; 83880; 84484; 85025; 85610; 87502; 87635; 93005; 99283; 99284

== ENCOUNTER → 2025-07-08 12:41 | Outpatient (BNV) | payer MEDICAID, SELFPAY | PROVIDERS: Emergency Provider Emergency Medicine; PCP Physician Assistant; Visit Provider Internal Medicine | DX: R00.1 Bradycardia, unspecified (principal); I49.3 Ventricular premature depolarization; I45.2 Bifascicular block | CPT/HCPCS: 93010 ==

== ENCOUNTER → 2025-07-08 13:14 | Outpatient (BNV) | payer MEDICAID, SELFPAY | PROVIDERS: PCP Physician Assistant; Visit Provider Radiology Diagnostic Radiology | DX: I51.7 Cardiomegaly (principal); Q25.46 Tortuous aortic arch | CPT/HCPCS: 71046 ==